=== PATIENT | male | born 1940 | race Caucasian/White ===

== ENCOUNTER → 2018-07-14 | Outpatient (CLI) | payer MEDICARE, BC ==
[~2018-07-14] MED LIST: ASPI81CH PO; Glucosamine &1 EACH PO; LISI20 PO; Pravastatin Sod40 MG PO
== END ==
LOC: LAB 14:45 → LAB SHORT 14:45
DX: N39.0 Urinary tract infection, site not specified (principal)
CPT/HCPCS: 87086

== ENCOUNTER 2019-09-16 06:23 | Day surgery (SDC) | payer MEDICARE, BC ==
[~2019-09-16] VITALS: Ht 165.1 cm; Wt 92.6 kg
--- NOTE | 2019-09-16 08:10 | NUR ---
09/16/19 0810 Sugey Romano [id number]- DR LOWE PRESENTED TO THE WLIY-OP HOLDING AREA TO PERFORM INTERSCALENE BLOCK. PT TOLERATED PROCEDURE WELL.
--- NOTE | 2019-09-16 12:23 | NUR ---
09/16/19 1223 Kassidy Monroy COPIES OF INSTRUCTIONS GIVEN AND RX TO FILL. TO CAR VIA FO[facility] W SBA X1
== END 2019-09-16 12:15 | disposition home or self-care (01) ==
LOC: ORSCSDS 06:23
PROVIDERS: Orthopaedic Surgery
PROC: 0RNK4ZZ Release Left Shoulder Joint, Percutaneous Endoscopic Approach (ICD-10-PCS; principal; 2019-09-16 08:00)
PROC: 0RBK4ZZ Excision of Left Shoulder Joint, Percutaneous Endoscopic Approach (ICD-10-PCS; principal; 2019-09-16 08:00)
PROC: 0LQ24ZZ Repair Left Shoulder Tendon, Percutaneous Endoscopic Approach (ICD-10-PCS; principal; 2019-09-16 08:00)
DX: M75.122 Complete rotator cuff tear or rupture of left shoulder, not specified as traumatic (principal); M75.42 Impingement syndrome of left shoulder; S46.102A Unspecified injury of muscle, fascia and tendon of long head of biceps, left arm, initial encounter; I10 Essential (primary) hypertension; E78.5 Hyperlipidemia, unspecified; Z87.891 Personal history of nicotine dependence; Z79.899 Other long term (current) drug therapy
CPT/HCPCS: C1713; J0171; J0690; J1100; J1885; J2001; J2250; J2405; J2704; J3010; J7120

== ENCOUNTER 2020-08-30 11:51 | Day surgery (SDC) | payer MEDICARE, BC ==
[~2020-08-30] VITALS: Ht 170.2 cm; Wt 90.1 kg
[~2020-08-30 11:51] MED LIST changes: +Prinivil10 MG PO
[2020-08-30] MEDS ORDERED: FISH OIL 1,2001 EAC7 (13:02)
== END 2020-08-30 14:24 | disposition home or self-care (01) ==
LOC: ORSCSDS 11:51
PROVIDERS: Internal Medicine Gastroenterology
PROC: 0DBK8ZX Excision of Ascending Colon, Via Natural or Artificial Opening Endoscopic, Diagnostic (ICD-10-PCS; principal; 2020-08-30 13:15)
DX: Z12.11 Encounter for screening for malignant neoplasm of colon (principal); D12.2 Benign neoplasm of ascending colon; E66.9 Obesity, unspecified; K57.30 Diverticulosis of large intestine without perforation or abscess without bleeding; Z68.32 Body mass index [BMI] 32.0-32.9, adult; Z87.891 Personal history of nicotine dependence; Z79.82 Long term (current) use of aspirin; Z79.899 Other long term (current) drug therapy
CPT/HCPCS: 88305; J2704; J7120

== ENCOUNTER → 2022-12-07 | Outpatient (CLI) | payer MEDICARE, BC ==
[~2022-12-07] MED LIST changes: +FISH OIL 1,2001 EAC7
== END | disposition home or self-care (01) ==
LOC: LAB 11:35 → PLD 11:35 → LAB SHORT 11:35
DX: L91.8 Other hypertrophic disorders of the skin (principal)
CPT/HCPCS: 88304

== ENCOUNTER → 2023-06-06 | Outpatient (CLI) | payer MEDICARE, BC | END | disposition home or self-care (01) | LOC: LAB 11:49 → PLD 11:49 → LAB SHORT 11:49 | DX: L82.0 Inflamed seborrheic keratosis (principal) | CPT/HCPCS: 88305 ==

== ENCOUNTER 2023-07-22 03:59 | Inpatient (IN) | payer MEDICARE, BC ==
[~2023-07-22] VITALS: Ht 172.7 cm; Wt 90.7 kg
[2023-07-22] VITALS (17 sets, daily range): BP systolic 100–192; BP diastolic 56–88
[2023-07-22 04:38] LABS: BASOPHILS ABSOLUTE AUTO 0.08 K/mm3 (0.00-0.23); BASOPHILS PERCENT AUTO 1 % (0-2); EOSINOPHILS ABSOLUTE AUTO 0.31 K/mm3 (0.00-0.68); EOSINOPHILS PERCENT AUTO 5 % (0-6); Hematocrit 43.2 % (37.0-53.0); Hemoglobin 15.1 g/dL (13.5-17.5); IMMATURE GRAN ABSOLUTE AUTO 0.02 K/mm3 (0.00-0.10); IMMATURE GRAN PERCENT AUTO 0 % (0-1); LYMPHOCYTES ABSOLUTE AUTO 2.07 K/mm3 (0.84-5.20); LYMPHOCYTES PERCENT AUTO 31 % (21-46); MONOCYTES ABSOLUTE AUTO 0.86 K/mm3 (0.16-1.47); MONOCYTES PERCENT AUTO 13 % (4-13); Mean Corpuscular HGB 32.3 pg (26.0-34.0); Mean Corpuscular Volume 92 fL (80-100); Mean Platelet Volume 9.8 fL (9.1-12.4); NEUTROPHILS ABSOLUTE AUTO 3.31 K/mm3 (1.96-9.15); NEUTROPHILS PERCENT AUTO 50 % (41-73); Platelet Count 201 K/mm3 (150-400); RDW Coefficient Variation 12.8 % (11.7-14.2); RDW Standard Deviation 43.1 fL (35.1-46.3); Red Blood Cell Count 4.68 M/mm3 (4.30-5.90); White Blood Cell Count 6.65 K/mm3 (4.00-11.30)
[2023-07-22 04:59] LABS: Albumin, Blood 3.9 g/dL (3.4-5.0); Albumin/Globulin Ratio 1.6 (0.8-1.8); Bun/Creatinine Ratio 38.4 (12.0-20.0); Calcium, Blood 8.7 mg/dL (8.5-10.1); Creatinine, Blood 0.65 mg/dL (0.60-1.20); Globulin, Blood 2.4 g/dL (2.2-4.0); Potassium, Blood 4.1 mmol/L (3.5-5.5); Total Protein, Blood 6.3 g/dL (6.4-8.2)
[2023-07-22 11:05] LABS: Hematocrit 39.8 % (37.0-53.0); Hemoglobin 14.2 g/dL (13.5-17.5)
--- NOTE | 2023-07-22 11:05 | NUR ---
RECEIVED REPORT FROM ER. ER TO TAKE PT BACK TO DAY SURGERY AT THIS TIME.
--- NOTE | 2023-07-22 11:36 | NUR ---
History, Chart, Medications and Allergies reviewed before start of procedure. Lungs clear T/O to Auscultation. Patient confirms NPO status and agrees with scheduled surgery. Pre-Op teaching done. Pt verbalizes understanding. PT LAST PO INTO 3PM YESTERDAY AFTERNOON.
--- NOTE | 2023-07-22 11:59 | NUR ---
07/22/23 1159 Ade Gan HISTORY, CHART, MEDICATIONS AND ALLERGIES REVIEWED BEFORE START OF PROCEDURE. PATIENT CONFIRMS NPO STATUS AND AGREES WITH SCHEDULED PROCEDURE. 3-LEAD EKG REVIEWED WITH PHYSICIAN PRIOR TO START OF PROCEDURE. MONITOR INTACT WITH CONTINUOUS PULSE OXIMETRY,CAPNOGRAPHY, 3-LEAD EKG, INTERMITTENT BP. SUPPLEMENTAL O2 TO BE TITRATED THROUGHOUT PROCEDURE TO MAINTAIN O2 SATURATION ABOVE 90%. PATIENT DETERMINED TO BE ASA APPROPRIATE FOR PROPOFOL SEDATION PRIOR TO START OF PROCEDURE BY DR. MENDOZA
[2023-07-22] MEDS ORDERED: ZINC220 PO (12:37)
[2023-07-22] MEDS ORDERED: IBU800 M1 PO (12:37)
[2023-07-22] MEDS ORDERED: Vitamin B Comple1 EA PO (12:38)
--- NOTE | 2023-07-22 12:56 | NUR ---
PT ARRIVAL TO ROOM S/P COLONOSCOPY. PT ALERT AND ORIENTED AND AMBULATORY TO THE RESTROOM. PT HAD A LIQUID BM THAT APPEARED LIGHT RED IN COLOR. PT STATES THE COLOR HAS LIGHTENED. PT DENIES PAIN AND N/V. DR. MENDOZA AT BEDSIDE. VSS. CALL LIGHT WITHIN REACH.
--- NOTE | 2023-07-22 16:04 | NUR ---
SHIFT SUMMARY NO ACUTE CHANGES SINCE ARRIVING TO UNIT S/P COLONOSCOPY. PT HAS HAD FREQUENT LIQUID BMS WHICH STARTED OUT RED IN COLOR, BUT NOW IS CLEAR WITH SMALL BLOOD CLOTS PRESENT. PT DENIES ABD PAIN OR N/V. JELANI CARDIAC DIET. INDEP IN ROOM. PLAN TO DISCHARGE HOME TOMORROW IF CONTINUES TO DO WELL. CALL LIGHT WITHIN REACH.
--- NOTE | 2023-07-23 04:37 | NUR ---
SHIFT SUMMARY NO ACUTE CHANGES OVERNIGHT. VITAL SIGNS STABLE. A&O x4, CALLS APPROPRIATELY. INDEPENDENT IN ROOM. NO BM OVERNGIGHT. ANTICIPATED D/C LATER THIS AM. BED IN LOWEST POSITION, CALL LIGHT WITHIN REACH, WILL REPORT TO DAY RN.
[2023-07-23 04:42] VITALS: BP 135/70
[2023-07-23 04:46] LABS: BASOPHILS ABSOLUTE AUTO 0.05 K/mm3 (0.00-0.23); BASOPHILS PERCENT AUTO 1 % (0-2); EOSINOPHILS ABSOLUTE AUTO 0.27 K/mm3 (0.00-0.68); EOSINOPHILS PERCENT AUTO 4 % (0-6); Hematocrit 34.9 % (37.0-53.0); Hemoglobin 12.3 g/dL (13.5-17.5); IMMATURE GRAN ABSOLUTE AUTO 0.02 K/mm3 (0.00-0.10); IMMATURE GRAN PERCENT AUTO 0 % (0-1); LYMPHOCYTES ABSOLUTE AUTO 1.89 K/mm3 (0.84-5.20); LYMPHOCYTES PERCENT AUTO 28 % (21-46); MONOCYTES ABSOLUTE AUTO 0.85 K/mm3 (0.16-1.47); MONOCYTES PERCENT AUTO 12 % (4-13); Mean Corpuscular HGB 32.5 pg (26.0-34.0); Mean Corpuscular HGB Conc 35.2 g/dL (31.5-36.5); Mean Corpuscular Volume 92 fL (80-100); Mean Platelet Volume 10.2 fL (9.1-12.4); NEUTROPHILS ABSOLUTE AUTO 3.77 K/mm3 (1.96-9.15); NEUTROPHILS PERCENT AUTO 55 % (41-73); Platelet Count 190 K/mm3 (150-400); RDW Coefficient Variation 12.8 % (11.7-14.2); RDW Standard Deviation 43.5 fL (35.1-46.3); Red Blood Cell Count 3.78 M/mm3 (4.30-5.90); White Blood Cell Count 6.85 K/mm3 (4.00-11.30)
[2023-07-23 05:11] LABS: Albumin, Blood 3.3 g/dL (3.4-5.0); Anion Gap 5 mmol/L (6-16); Blood Urea Nitrogen 19 mg/dL (8-24); Bun/Creatinine Ratio 30.8 (12.0-20.0); CO2, Blood 27 mmol/L (21-32); Calcium, Blood 8.3 mg/dL (8.5-10.1); Chloride, Blood 108 mmol/L (98-108); Creatinine, Blood 0.62 mg/dL (0.60-1.20); Glomerular Filtration Rate 97 (60-); Glucose, Blood 123 mg/dL (70-99); Potassium, Blood 3.6 mmol/L (3.5-5.5); Sodium, Blood 140 mmol/L (136-145)
[2023-07-23 07:16] VITALS: BP 144/70
--- NOTE | 2023-07-23 07:55 | NUR ---
DENIES ANY PAIN OR ANY DISCOMFORT, INDEPENDENT IN ROOM, DENIES FURTHER BLOODY STOOLS, CONT. TO MONITOR FOR ANY CHANGES.
== END 2023-07-23 12:15 | disposition home or self-care (01) | DRG 379 ==
LOC: ER 03:59 → SURS 08:56
PROVIDERS: Emergency Medicine; Internal Medicine Gastroenterology; ADMIT Family Medicine
PROC: 0DJD8ZZ Inspection of Lower Intestinal Tract, Via Natural or Artificial Opening Endoscopic (ICD-10-PCS; principal; 2023-07-22 11:15)
DX: K57.31 Diverticulosis of large intestine without perforation or abscess with bleeding (principal); I10 Essential (primary) hypertension; M19.90 Unspecified osteoarthritis, unspecified site; E78.5 Hyperlipidemia, unspecified; N40.0 Benign prostatic hyperplasia without lower urinary tract symptoms; Z79.82 Long term (current) use of aspirin; Z79.899 Other long term (current) drug therapy; Z98.890 Other specified postprocedural states
CPT/HCPCS: 36415; 74174; 80053; 80069; 85014; 85018; 85025; 86850; 86900; 86901; 93005; 93010; 99285-25; A9270; J2704; J7120; Q9967

== ENCOUNTER 2023-10-17 10:49 | Day surgery (SDC) | payer MEDICARE, BC ==
[~2023-10-17] VITALS: Ht 165 cm; Wt 93.2 kg
[2023-10-17] VITALS (13 sets, daily range): BP systolic 115–160; BP diastolic 57–84
[~2023-10-17 10:49] MED LIST changes: +AMLO5 PO; +ASPI325 PO; -FISH OIL 1,2001 EAC7; +IBU800 M1 PO; +METO25ER PO
[2023-10-17] MEDS ORDERED: METOPROLOL SUCC25 MG PO (11:45)
[2023-10-17] MEDS ORDERED: SILDENAFIL CIT100 MG PO (11:46)
[2023-10-17] MEDS ORDERED: ZINC220 PO (11:47)
[2023-10-17] MEDS ORDERED: LATANOPROST2.5 M3 BOTHEYES (11:47)
[2023-10-17] MEDS ORDERED: Vitamin B Comple1 EA PO (11:47)
[2023-10-17] MEDS ORDERED: FISH OIL 1,2001 EAC7 PO (11:48)
--- NOTE | 2023-10-17 12:23 | NUR ---
History, Chart, Medications and Allergies reviewed before start of procedure.Ambulatory in Day Surgery. Pre-Op teaching done. Pt verbalizes understanding. Patient confirms NPO status and agrees with scheduled surgery. Patient reports completing Chlorhexadine shower X2 prior to admission to hospital. Surgical site prepped with 2% Chlorhexidine cloth wipe. Lungs clear T/O to Auscultation. Patient States Post-Procedure ride home has been arranged.
--- NOTE | 2023-10-17 19:23 | NUR ---
SHIFT SUMMARY POD0 R TKA, A/OX4, VSS, TOLERATING PO, PAIN WELL MANAGED, VOIDING INDEPENDENTLY, SPINAL ANESTHESIA AND STILL HAVING SOME NUMBNESS BLE BUT HAS ONLY BEEN ON THE FLOOR FOR ABOUT 2 HOURS THIS SHIFT. NO ACUTE EVENTS THIS SHIFT, CALL LIGHT IN REACH.
[2023-10-18] VITALS: BP 130/74
--- NOTE | 2023-10-18 04:24 | NUR ---
SHIFT SUMMARY POD1 R TKA. DRESSING REMAINS C/D/I. CRYO IN PLACE. VSS. PT SLEPT ON AND OFF T/O THE NIGHT. PT AMBULATED IN HALLS, VOIDING INTO URINAL, AND TOLLERATING PO INTAKE W/O N/V. PAIN MANAGED WITH SCHEDULED TYLENOL. NO ACUTE EVENTS NOTED T/O THE NIGHT. PLAN TO WORK WITH PT AND D/C HOME.
[2023-10-18 04:59] VITALS: BP 146/82
[2023-10-18 05:31] LABS: BASOPHILS ABSOLUTE AUTO 0.01 K/mm3 (0.00-0.23); BASOPHILS PERCENT AUTO 0 % (0-2); EOSINOPHILS PERCENT AUTO 0 % (0-6); Hematocrit 38.3 % (37.0-53.0); Hemoglobin 13.3 g/dL (13.5-17.5); IMMATURE GRAN ABSOLUTE AUTO 0.06 K/mm3 (0.00-0.10); IMMATURE GRAN PERCENT AUTO 1 % (0-1); LYMPHOCYTES ABSOLUTE AUTO 0.52 K/mm3 (0.84-5.20); LYMPHOCYTES PERCENT AUTO 4 % (21-46); MONOCYTES ABSOLUTE AUTO 0.78 K/mm3 (0.16-1.47); MONOCYTES PERCENT AUTO 6 % (4-13); Mean Corpuscular HGB 31.8 pg (26.0-34.0); Mean Corpuscular HGB Conc 34.7 g/dL (31.5-36.5); Mean Corpuscular Volume 92 fL (80-100); Mean Platelet Volume 10.1 fL (9.1-12.4); NEUTROPHILS ABSOLUTE AUTO 11.78 K/mm3 (1.96-9.15); NEUTROPHILS PERCENT AUTO 90 % (41-73); Platelet Count 204 K/mm3 (150-400); RDW Standard Deviation 40.3 fL (35.1-46.3); Red Blood Cell Count 4.18 M/mm3 (4.30-5.90); White Blood Cell Count 13.15 K/mm3 (4.00-11.30)
[2023-10-18 06:36] LABS: Bun/Creatinine Ratio 28.7 (12.0-20.0); Calcium, Blood 8.4 mg/dL (8.5-10.1); Creatinine, Blood 0.7 mg/dL (0.60-1.20); Magnesium, Blood 1.9 mg/dL (1.6-2.4); Potassium, Blood 4.4 mmol/L (3.5-5.5)
[2023-10-18 07:44] VITALS: BP 141/70
--- NOTE | 2023-10-18 11:21 | NUR ---
DISCHARGE SUMMARY POD1 R TKA, A/OX4, VSS, TOLERATING PO, PAIN WELL MANAGED, AMBULATING WELL, VOIDING INDEPENDENTLY, DRESSING CHANGED THIS MORNING BY SURGEON WITH WOUND CARE INSTRUCTIONS PROVIDED AT THAT TIME. DISCUSSED DISCHARGE INSTRUCTIONS WITH THE PATIENT INCLUDING HOME CARE, MEDICATIONS, AND FOLLOW UP APPOINTMENTS, IV ACCESS REMOVED PRIOR TO DISCHARGE. NO QUESTIONS AT THIS TIME, PT ESCORTED OUT VIA WC TO PRIVATE AUTO TO GO HOME.
== END 2023-10-18 10:43 | disposition home or self-care (01) ==
LOC: ORSCMMR 10:49 → ORD 14:00 → SURS 16:43 → ORSCMMR 16:44 → SURS 10-18 10:43 → ORSCMMR 10-18 10:43
PROVIDERS: Orthopaedic Surgery
PROC: 0SRC0J9 Replacement of Right Knee Joint with Synthetic Substitute, Cemented, Open Approach (ICD-10-PCS; principal; 2023-10-17 14:00)
DX: M17.0 Bilateral primary osteoarthritis of knee (principal); I10 Essential (primary) hypertension; E78.5 Hyperlipidemia, unspecified; E88.810 Metabolic syndrome; Z79.899 Other long term (current) drug therapy; Z68.34 Body mass index [BMI] 34.0-34.9, adult; Z87.891 Personal history of nicotine dependence; Z79.82 Long term (current) use of aspirin
CPT/HCPCS: 36415; 73560-RT; 80048; 82947; 83735; 85025; 97110; 97116; 97162; 97530; A9270; C1713; C1776; J0171; J0690; J0735; J1885; J2250; J2704; J2795; J3010; J7120

== ENCOUNTER 2024-11-10 10:06 | Emergency (ER) | payer MEDICARE, BC ==
[~2024-11-10] VITALS: Ht 170.2 cm; Wt 90.7 kg
[~2024-11-10 10:06] MED LIST changes: +FISH OIL 1,2001 EAC7 PO; +LATANOPROST2.5 M3 BOTHEYES; +METOPROLOL SUCC25 MG PO; +SILDENAFIL CIT100 MG PO; +Vitamin B Comple1 EA PO; +ZINC220 PO
[2024-11-10 10:36] VITALS: BP 147/76
[2024-11-10 11:06] LABS: CORONAVIRUS COVID-19 AG Negative (NEGATIVE); INFLUENZA A AG Positive (NEGATIVE); INFLUENZA B AG Negative (NEGATIVE)
[2024-11-10] MEDS ORDERED: ALBU90OI INH (12:37)
== END 2024-11-10 12:50 | disposition home or self-care (01) ==
LOC: ER 10:06
PROVIDERS: Physician Assistant
DX: J10.1 Influenza due to other identified influenza virus with other respiratory manifestations (principal); I10 Essential (primary) hypertension; E78.5 Hyperlipidemia, unspecified; Z79.82 Long term (current) use of aspirin; Z79.899 Other long term (current) drug therapy
CPT/HCPCS: 87428-QW; 99283